=== PATIENT | male | born 2000 | race Two or more races ===

== ENCOUNTER 2021-06-18 16:01 | Emergency (ER) | payer OTHER ==
[2021-06-18 17:48] VITALS: BP 142/87
--- NOTE | 2021-06-18 17:49 | ED Physician Documentation ---
History of Present Illness - Stated complaint Stated Complaint: SORE THROAT,COUGH - Chief complaint Chief Complaint: Heent - History obtained from History obtained from: Patient - Additonal information Additional information: Previously healthy 21-year-old gentleman has been sick for about 2 days with minimally productive cough, sinus pain, sore throat. No fevers, chills, body aches. He is fully immunized against Covid. He has had relief with some DayQuil. Mostly needs a work note. Review of Systems Constitutional: denies: Fever, Chills Nose: reports: Rhinorrhea / runny nose Throat: reports: Sore throat Respiratory: reports: Cough. denies: Dyspnea PD PAST MEDICAL HISTORY - Past Medical History Past Medical History: Yes Cardiovascular: None Respiratory: None Neuro: None Endocrine/Autoimmune: None GI: None : None HEENT: None Psych: None Musculoskeletal: None Derm: None - Past Surgical History Past Surgical History: No - Present Medications Home Medications: Ambulatory Orders Medication Instructions Recorded Confirmed No Known Home Medications 06/18/21 06/18/21 - Allergies Allergies/Adverse Reactions: Allergies Allergy/AdvReac Type Severity Reaction Status Date / Time No Known Drug Allergies Allergy Verified 06/18/21 16:17 - Social History Does the pt smoke?: No Smoking Status: Never smoker Does the pt drink ETOH?: Yes Does the pt have substance abuse?: No - Immunizations Immunizations are current?: Yes PD ED PE NORMAL - Vitals Vital signs reviewed: Yes - General General: Alert and oriented X 3, No acute distress - HEENT HEENT: PERRL, Ears normal, Pharynx benign - Neck Neck: Supple, no meningeal sign, No bony TTP - Cardiac Cardiac: RRR, No murmur - Respiratory Respiratory: No respiratory distress, Clear bilaterally - Abdomen Abdomen: Non tender - Back Back: No CVA TTP, No spinal TTP - Derm Derm: Normal color, Warm and dry - Extremities Extremities: No edema, No calf tenderness / cord - Neuro Neuro: Alert and oriented X 3, Normal speech Results - Vitals Vitals: Vital Signs - 24 hr 06/18/21 16:15 Temperature 36.6 C Heart Rate 102 H Respiratory 16 Rate Blood Pressure 138/74 H O2 Saturation 97 Oxygen O2 Source Room air PD MEDICAL DECISION MAKING - ED course ED course: 21-year-old gentleman has a viral syndrome. There is no evidence of bacterial infection. He does have sinus pain but no tenderness. The time course would not necessitate a need for antibiotics. Work note was written. Departure - Departure Disposition: 01 Home, Self Care Clinical Impression: Viral URI Condition: Good Record reviewed to determine appropriate education?: Yes Instructions: ED URI Viral Comments: Return if worse, or for new symptoms. [place] the end of the week. Forms: Activity restrictions
== END 2021-06-18 17:56 | disposition home or self-care (01) ==
LOC: ED 16:01
DX: J06.9 Acute upper respiratory infection, unspecified (principal)
CPT/HCPCS: 99282